=== PATIENT | male | born 2000 | race African-American/Black ===

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

== ENCOUNTER 2023-02-22 02:10 | Emergency (ER) | payer OTHER ==
[~2023-02-22] VITALS: Ht 180.3 cm; Wt 77.3 kg
[2023-02-22] MEDS ORDERED: Morphine 4 MG/ML VIAL IV ONE (02:30)
[2023-02-22] MEDS ORDERED: Ondansetron 4 MG/2 ML VIAL IV ONE (02:30)
[2023-02-22 02:46] LABS: HEMATOCRIT 46.3 % (36.0-47.0); HEMOGLOBIN 15.1 g/dl (12.5-16.1); MEAN CELL VOLUME 80 fl (80.0-95.0); MEAN CORPUSCULAR HEMOGLOBIN 26 pg (26-32); MEAN CORPUSCULAR HGB CONC 33 g/dl (33.0-37.0); MEAN PLATELET VOLUME 10.8 fl (7.4-10.4); PLATELET COUNT 281 K/mm3 (130-400); RED BLOOD COUNT 5.79 M/mm3 (4.20-5.60); REDCELL DISTRIBUTION WIDTH-CV 13.2 % (11.5-14.5)
[2023-02-22 03:24] LABS: ALANINE AMINOTRANSFERASE 35 U/L (0-55); ALBUMIN 4.2 gm/dL (3.5-5.0); ALKALINE PHOSPHATASE 42 U/L (40-150); ANION GAP 9 mmol/L (7-16); AST,SGOT 21 U/L (5-34); BLOOD UREA NITROGEN 15 mg/dL (9-21); CALCIUM 8.9 mg/dL (8.4-10.2); CARBON DIOXIDE 23 mmol/L (22-29); CHLORIDE 104 mmol/L (98-107); CREATININE, serum 1.16 mg/dL (0.72-1.25); GLUCOSE 137 mg/dL (70-99); POTASSIUM 3.3 mmol/L (3.5-4.5); SODIUM 136 mmol/L (136-145); TOTAL PROTEIN 7.7 gm/dL (6.2-8.1)
[2023-02-22 03:27] LABS: ALCOHOL(ethanol),MEDICAL < 10 mg/dL (0-10)
[2023-02-22] MEDS ORDERED: Tranexamic Acid 1,000 MG/10 ML VIAL TOP ONE (03:48)
[2023-02-22 03:49] LABS: BAND 5 % (0-10); EOSINOPHIL 2 % (0-4); LYMPHOCYTE 54 % (20.0-51.0); NEUTROPHILS 35 % (42.0-75.2); PLATELET ESTIMATE NORMAL (NORMAL)
[2023-02-22] MEDS ORDERED: Chlorhexidine 0.12% Oral Rinse 480 ML BOTTLE MM ONE (04:30)
[2023-02-22 05:21] VITALS: BP 138/77; PULSE 76
== END 2023-02-22 05:24 | disposition home or self-care (01) ==
LOC: COL.ER 02:10
PROVIDERS: Emergency Medicine
DX: S01.512A Laceration without foreign body of oral cavity, initial encounter (principal); W22.8XXA Striking against or struck by other objects, initial encounter; Y93.23 Activity, snow (alpine) (downhill) skiing, snowboarding, sledding, tobogganing and snow tubing; Y92.828 Other wilderness area as the place of occurrence of the external cause
CPT/HCPCS: J0665; J2270; J2405